=== PATIENT | male | born 1985 ===

== ENCOUNTER 2025-05-31 17:00 | Inpatient (IN) | payer OTHER ==
[~2025-05-31] VITALS: Ht 180.3 cm; Wt 110.0 kg
[2025-05-31 17:57] LABS: PLATELET COUNT (AUTO) 253 K/uL (150-450); RED BLOOD CELL COUNT(AUTO) 6.00 MIL/uL (4.50-5.90); RED CELL DISTRIBUTION WIDTH 14.9 % (11.5-14.5); WHITE BLOOD COUNT (AUTO) 13.4 K/uL (4.5-11.0)
[2025-05-31 18:13] LABS: CALCIUM, TOTAL 9.6 mg/dL (8.8-10.5); CREATININE 0.93 mg/dL (0.60-1.30); GLOMERULAR FILTR. RATE CALC > 60 mL/min (>60); GLUCOSE,RANDOM 102 mg/dL (70-110); SODIUM SERUM 137 mmol/L (136-145); UREA NITROGEN, BLOOD 15 mg/dL (7-18)
[2025-05-31 18:28] LABS: LACTIC ACID 1.6 mmol/L (0.4-2.0)
[2025-05-31] MEDS: SODIUM CHLORIDE 0.9% 1,000 ML IV ONE ×2 (19:10→21:19)
[2025-05-31] MEDS: MORPHINE SULFATE 2 MG/ML SYRINGE IVP ONE (19:10)
[2025-05-31] MEDS: KETOROLAC TROMETHAMINE 30 MG/ML VIAL IVP ONE (19:10)
[2025-05-31] MEDS ORDERED: LIDOCAINE 1% 10 ML VIAL ONE (19:33)
[2025-05-31] MEDS: CEFEPIME HCL 2 GM in DEXTROSE 5%-WATER 50 ML IV ONE (19:57)
[2025-05-31] MEDS: VANCOMYCIN 1.25 GM/WATER(PEG) 250 ML IV ONE (19:58)
[2025-05-31] MEDS: PERTUSS(ACELL),DIPH,TET/PF 0.5 ML SYRINGE [ADULT] IM. ONE (20:02)
[2025-05-31] MEDS ORDERED: IPRATROPIUM BROMIDE 0.5 MG/2.5 ML NEB SOLUTION NEB PRN (22:45)
[2025-05-31] MEDS ORDERED: ONDANSETRON HCL 4 MG/2 ML VIAL IVP PRN (22:45)
[2025-05-31] MEDS ORDERED: ALBUTEROL SULFATE 2.5 MG/0.5 ML NEB SOLUTION NEB PRN (22:45)
[2025-05-31] MEDS ORDERED: ZOLPIDEM TARTRATE 5 MG TABLET PO PRN (22:45)
[2025-05-31] MEDS ORDERED: MAGNESIUM HYDROXIDE SUSPENSION 30 ML UDCUP PO PRN (22:45)
[2025-05-31] MEDS ORDERED: BISACODYL 10 MG RECTAL RECTAL SUPPOSITORY PR PRN (22:45)
[2025-05-31] MEDS ORDERED: LEVE-71 PO (23:09)
[2025-05-31] MEDS ORDERED: ONDA-104 PO (23:09)
[2025-05-31] MEDS ORDERED: ZIPR40CA38 PO (23:09)
[2025-05-31] MEDS ORDERED: BUPR1TAB46 SL (23:09)
[2025-05-31] MEDS ORDERED: ACET-3385 PO (23:09)
[2025-05-31] MEDS ORDERED: LOPE-232 PO (23:09)
[2025-05-31] MEDS ORDERED: HYDR50CA7 PO (23:09)
[2025-05-31] MEDS ORDERED: BENZ-247 PO (23:09)
[2025-06-01] MEDS: HEPARIN SODIUM,PORCINE 5,000 UNITS/ML VIAL SQ SCH
[2025-06-01 01:55] VITALS: BP 154/95; PULSE 85; RESP 18; TEMP 98.1; O2SAT 96
[2025-06-01] MEDS: INFLUENZA VIRUS VACCINE TVS (6MO+) 2025-26/PF 45 MCG/0.5 ML SYRINGE IM. ONE (06:00)
[2025-06-01] MEDS: ACETAMINOPHEN 325 MG TABLET PO PRN (08:34)
[2025-06-01] MEDS: PANTOPRAZOLE SODIUM 40 MG DR TABLET PO SCH (08:34)
[2025-06-01 09:09] VITALS: BP 133/92; PULSE 83; RESP 20; TEMP 99; O2SAT 97
[2025-06-01] MEDS ORDERED: SODIUM CHLORIDE 0.9% 500 ML IV ONE (18:31)
[2025-06-01] MEDS: PIPERACILLIN/TAZO 3.375 GM/D5W 50 ML IV SCH (18:39)
[2025-06-01] MEDS: BUPRENORPHINE HCL/NALOXONE HCL 8-2 MG SUBLINGUAL TABLET SL ONE (18:39)
[2025-06-01 20:00] VITALS: BP 131/90; PULSE 86; RESP 18; TEMP 98.1; O2SAT 96
[2025-06-01] MEDS: VANCOMYCIN 1.75GM/WATER(PEG) 350 ML IV ONE (20:17)
[2025-06-01] MEDS: BENZTROPINE MESYLATE 1 MG TABLET PO SCH (20:17)
[2025-06-01] MEDS ORDERED: BUPRENORPHINE HCL/NALOXONE HCL 8-2 MG SUBLINGUAL TABLET SL SCH (21:00)
[2025-06-02 04:00] VITALS: BP 135/76; PULSE 79; RESP 18; TEMP 98.5; O2SAT 97
[2025-06-02 06:42] LABS: CALCIUM, TOTAL 9.0 mg/dL (8.8-10.5); CREATININE 0.91 mg/dL (0.60-1.30); GLOMERULAR FILTR. RATE CALC > 60 mL/min (>60); GLUCOSE,RANDOM 99 mg/dL (70-110); SODIUM SERUM 139 mmol/L (136-145); UREA NITROGEN, BLOOD 15 mg/dL (7-18)
[2025-06-02] MEDS: BUPRENORPHINE HCL/NALOXONE HCL 8-2 MG SUBLINGUAL TABLET SL SCH (08:26)
[2025-06-02] MEDS: VANCOMYCIN 1.25 GM/WATER(PEG) 250 ML IV SCH (08:26)
[2025-06-02 08:45] VITALS: BP 144/90; PULSE 84; RESP 18; TEMP 98.3; O2SAT 97
[2025-06-02 20:00] VITALS: BP 140/93; PULSE 87; RESP 18; TEMP 99.5; O2SAT 98
[2025-06-03 04:00] VITALS: BP 146/95; PULSE 89; RESP 18; TEMP 98.2; O2SAT 97
[2025-06-03 07:01] LABS: CALCIUM, TOTAL 9.0 mg/dL (8.8-10.5); CREATININE 1.08 mg/dL (0.60-1.30); GLOMERULAR FILTR. RATE CALC > 60 mL/min (>60); GLUCOSE,RANDOM 104 mg/dL (70-110); SODIUM SERUM 137 mmol/L (136-145); UREA NITROGEN, BLOOD 13 mg/dL (7-18)
[2025-06-03 08:56] VITALS: BP 132/83; PULSE 92; RESP 18; TEMP 98.1; O2SAT 97
[2025-06-03 16:00] VITALS: BP 134/91; PULSE 84; RESP 17; TEMP 98.6; O2SAT 98
[2025-06-03 20:00] VITALS: BP 144/92; PULSE 68; RESP 18; TEMP 98.9; O2SAT 99
[2025-06-04 04:00] VITALS: BP 126/81; PULSE 73; RESP 18; TEMP 98.9; O2SAT 96
[2025-06-04 07:35] VITALS: BP 103/65; PULSE 71; RESP 18; TEMP 97.3; O2SAT 100
[2025-06-04 08:08] LABS: CALCIUM, TOTAL 9.2 mg/dL (8.8-10.5); CREATININE 0.93 mg/dL (0.60-1.30); GLOMERULAR FILTR. RATE CALC > 60 mL/min (>60); GLUCOSE,RANDOM 97 mg/dL (70-110); SODIUM SERUM 138 mmol/L (136-145); UREA NITROGEN, BLOOD 14 mg/dL (7-18)
[2025-06-04] MEDS ORDERED: BUPR1TAB46 SL (10:20)
[2025-06-04] MEDS ORDERED: SULF1TAB94 PO (10:20)
[2025-06-04] MEDS ORDERED: MAGN-169 PO (10:22)
[2025-06-04] MEDS ORDERED: SULFAMETHOX/TRIMETH DS 800-160 MG/TABLET PO SCH (21:00)
== END 2025-06-04 15:51 | DRG 558 ==
LOC: EMS 17:00 → EDH 06-01 01:04 → 6S 06-01 01:52
PROVIDERS: ADMIT Hospitalist; ATTEND Hospitalist
DX: M71.122 Other infective bursitis, left elbow (principal); E66.9 Obesity, unspecified; L03.114 Cellulitis of left upper limb; R65.10 Systemic inflammatory response syndrome (SIRS) of non-infectious origin without acute organ dysfunction; I10 Essential (primary) hypertension; G40.909 Epilepsy, unspecified, not intractable, without status epilepticus; F15.90 Other stimulant use, unspecified, uncomplicated; F11.90 Opioid use, unspecified, uncomplicated; Z68.33 Body mass index [BMI] 33.0-33.9, adult; Z88.8 Allergy status to other drugs, medicaments and biological substances; Z79.899 Other long term (current) drug therapy
CPT/HCPCS: 80048; 80202; 83605; 85025; 87040; 87075; 87186; 87205; 90715; 99285; J0692; J1644; J1885; J2270; J2543; J3490; J7030; J7040; J7060